=== PATIENT | female | born 1955 | race Two or more races ===

== ENCOUNTER 2020-11-27 01:18 | Emergency (ER) | payer MEDICAID, MEDICARE ==
[~2020-11-27] VITALS: Ht 152.4 cm; Wt 47.6 kg
[2020-11-27 03:00] VITALS: BP 131/89
== END 2020-11-27 03:42 | disposition left against medical advice (07) ==
LOC: ER 01:20
DX: F41.9 Anxiety disorder, unspecified (principal); I10 Essential (primary) hypertension; F17.210 Nicotine dependence, cigarettes, uncomplicated; Z88.1 Allergy status to other antibiotic agents